=== PATIENT | male | born 1980 | race Two or more races ===

== ENCOUNTER 2017-12-26 05:52 | Inpatient (IN) | payer OTHER ==
[~2017-12-26] VITALS: Ht 172.7 cm; Wt 90.7 kg
[2017-12-26] VITALS (12 sets, daily range): BP systolic 115–139; BP diastolic 57–88
[~2017-12-26 05:52] MED LIST: NKM
[2017-12-26] MEDS ORDERED: Zemuron 50mg/5ml Inj IV ONE (06:15)
[2017-12-26] MEDS ORDERED: LR 1000ml 1,000 ML IVLG SCH (06:24)
[2017-12-26] MEDS ORDERED: Atropine Sulfate 0.4mg/ml inj IVP PRN (06:30)
[2017-12-26] MEDS ORDERED: Metoclopramide 10mg/2ml Inj IVP PRN (06:30)
[2017-12-26] MEDS ORDERED: LORazepam Inj 2mg/ml 1ml IV PRN (06:30)
[2017-12-26] MEDS ORDERED: fentaNYL 100 mcg/2 mL IV PRN (06:30)
[2017-12-26] MEDS ORDERED: Norco 5mg/325mg tab ORAL PRN (06:30)
[2017-12-26] MEDS ORDERED: Meperidine 50mg/ml Inj(FOR RIGORS ONLY) IVP PRN (06:30)
[2017-12-26] MEDS ORDERED: Labetalol 5mg/ml 20ml vial IV PRN (06:30)
[2017-12-26] MEDS ORDERED: Ketorolac 30mg Inj IV PRN ×2 (06:30)
[2017-12-26] MEDS ORDERED: Midazolam 2mg/2ml Inj IVP PRN (06:30)
[2017-12-26] MEDS ORDERED: Acetaminophen (Non formulary) 100 ML IV ONE (06:30)
[2017-12-26] MEDS ORDERED: HYDROcodone/Acetamin 7.5/325 tab ORAL PRN (06:30)
[2017-12-26] MEDS ORDERED: oxyCODONE HCL/Acetaminophen 5/325mg ORAL PRN (06:30)
[2017-12-26] MEDS ORDERED: DiphenhydrAMINE 50mg/ml Inj IVP PRN (06:30)
--- NOTE | 2017-12-26 06:30 | Anethesia Preoperative Eval ---
Anesthesia Pre-op PMH/ROS General Date of Evaluation: Dec 26, 2017 Time of Evaluation: 07:11 Anesthesiologist: Stanislaw ASA Score: ASA 3 Mallampati Score Class I : Soft palate, uvula, fauces, pillars visible Class II: Soft palate, uvula, fauces visible Class III: Soft palate, base of uvula visible Class IV: Only hard plate visible Mallampati Classification: Class III Surgeon: Shyann Diagnosis: Back Pain Surgical Procedure: L5-S1 Microdiscectomy, Microdecompression Anesthesia History: none Social History: alcohol use Family History: no anesthesia problems Allergies: Coded Allergies: No Known Allergies (Unverified , 12/26/17) Medications: see eMAR Past Medical History Gastrointestinal/Genitourinary: Reports: other - Liver Disease, Panreatitis Other: obesity - BMI 32 Anesthesia Pre-op Phys. Exam Physician Exam Vital Signs Date Time Temp Pulse Resp B/P (MAP) Pulse Ox O2 Delivery O2 Flow Rate FiO2 12/26/17 06:25 Room Air 12/26/17 06:25 97.7 63 18 133/78 (96) 97 97.7 Constitutional: NAD Neurologic: CN 2-12 intact Cardiovascular: RRR Respiratory: CTA Gastrointestinal: S/NT/ND Airway Exam Mallampati Score: Class III MO: limited ROM: limited Teeth: missing, intact Anesthesia Pre-op A/P Risk Assessment & Plan Assessment: ASA 3 Plan: GA, SED, GlideScope Go Status Change Before Surgery: No Pre-Antibiotics Dru Grams Ancef IV Given Within 1 Hr of Incision: Yes Time Given: 07:26 Thad Dover MD Dec 26, 2017 06:30
[2017-12-26] MEDS ORDERED: Thrombin 5000 units TOPIC ONE (06:35)
[2017-12-26] MEDS ORDERED: Gelfoam Size TOPIC ONE (06:36)
[2017-12-26] MEDS ORDERED: Bupivacaine 0.5% Inj 30 ml vial INJ ONE (06:37)
[2017-12-26] MEDS ORDERED: Bacitracin 50000 Units Vial ONE (06:37)
[2017-12-26] MEDS ORDERED: Lidocaine 1% Plain 30 ml INJ ONE ×2 (06:37→06:46)
[2017-12-26] MEDS ORDERED: Lidocaine 1% 10mg/ml/Epi 0.005mg/ml 30ml vial INJ ONE (06:37)
[2017-12-26] MEDS ORDERED: Sodium Chloride 10ml vial INJ ONE (06:46)
[2017-12-26] MEDS ORDERED: Lidocaine 1% MPF 10mg/ml 5ml ONE (06:46)
[2017-12-26] MEDS ORDERED: Ketamine 500mg Inj ONE (06:47)
[2017-12-26] MEDS ORDERED: NS Irrig 1000ml ONE (07:00)
[2017-12-26] MEDS ORDERED: Labetalol 5mg/ml 20ml vial IV ONE (07:00)
[2017-12-26] MEDS ORDERED: Sterile Water Irrig 1000ml IRRIG ONE (07:00)
[2017-12-26] MEDS ORDERED: LR 1000ml ONE (07:00)
[2017-12-26] MEDS ORDERED: ceFAZolin sod 1 GM in NS 55 ML IVPB ONE (07:00)
[2017-12-26] MEDS ORDERED: Propofol 1,000mg/ 100ml btl IV ONE (07:00)
[2017-12-26] MEDS ORDERED: Dexamethasone 20mg/5ml IVP ONE (07:00)
[2017-12-26] MEDS ORDERED: HYDROcodone/Acetamin 10/325 tab ORAL PRN (07:15)
[2017-12-26] MEDS ORDERED: HYDROmorphone 1mg/ml Carpuject SUBQ PRN (07:15)
[2017-12-26] MEDS ORDERED: Chloraseptic Spray 20mL Bottle ORAL PRN (07:15)
--- NOTE | 2017-12-26 07:20 | Pre-Procedure Note/Attestation ---
Pre-Procedure Note/Attestation Complete Prior to Procedure Planned Procedure: not applicable Procedure Narrative: L5-S1 microdiscectomy Indications for Procedure Pre-Operative Diagnosis: Trauma L5-S1 HNP Attestation I attest that I discussed the nature of the procedure; its benefits; risks and complications; and alternatives (and the risks and benefits of such alternatives ), prior to the procedure, with the patient (or the patient's legal truck sales representative). I attest that, if there was a reasonable possibility of needing a blood transfusion, the patient (or the patient's legal truck sales representative) was given the [facility] standardized written summary, pursuant to the Everardo Ryan Blood Safety Act ([place] Health and Safety Code # 1645, as amended). I attest that I re-evaluated the patient just prior to the surgery and that there has been no change in the patient's H&P, except as documented below: CHEMA DAVID Dec 26, 2017 07:20
[2017-12-26] MEDS ORDERED: LORazepam 0.5mg tab ORAL PRN (07:45)
--- NOTE | 2017-12-26 07:46 | 48 Hour Post Anesthesia Eval ---
Post Anesthesia Evaluation Procedure: L5-S1 Microdiscectomy, Microdecompression Date of Evaluation: Dec 26, 2017 Time of Evaluation: 12:07 Blood Pressure Systolic: 114 0: 57 Pulse Rate: 63 Respiratory Rate: 18 Temperature (Fahrenheit): 98.2 O2 Sat by Pulse Oximetry: 99 Airway: patent Nausea: No Vomiting: No Pain Intensity: 3 Hydration Status: adequate Cardiopulmonary Status: Stable Mental Status/LOC: patient returned to baseline Follow-up Care/Observations: 0 Post-Anesthesia Complications: 0 Follow-up care needed: ready to discharge Thad Dover MD Dec 26, 2017 07:46
--- NOTE | 2017-12-26 07:46 | Immediate Post-Op Evaluation ---
Immediate Post-Op Evalulation Immediate Post-Op Evalulation Procedure: L5-S1 Microdiscectomy, Microdecompression Date of Evaluation: Dec 26, 2017 Time of Evaluation: 09:57 IV Fluids: 1000 LR Blood Products: 0 Estimated Blood Loss: 25 Urinary Output: 0 Blood Pressure Systolic: 117 Blood Pressure Diastolic: 71 Pulse Rate: 60 Respiratory Rate: 17 O2 Sat by Pulse Oximetry: 98 Temperature (Fahrenheit): 97.8 Pain Score (1-10): 3 Nausea: No Vomiting: No Complications 0 Patient Status: awake, reacts, patent, extubated, none Hydration Status: adequate Dru Grams Ancef IV Given Within 1 Hr of Incision: Yes Time Given: 07:26 Thad Dover MD Dec 26, 2017 07:46
[2017-12-26] MEDS ORDERED: fentaNYL 100 mcg/2 mL IV ONE (08:23)
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
[2017-12-26] MEDS ORDERED: Docusate 100mg/10ml Liq NG SCH (09:00)
[2017-12-26] MEDS ORDERED: Docusate 100mg/10ml Liq ORAL SCH (09:00)
[2017-12-26] MEDS ORDERED: Glycopyrrolate 0.2mg/ml 1ml Vial ONE (09:08)
[2017-12-26] MEDS ORDERED: Neostigmine 1mg/ml 10ml Inj ONE (09:08)
[2017-12-26] MEDS: D5 1/2NS 1,000 ML IV SCH ×2 (09:19→16:05)
--- NOTE | 2017-12-26 09:19 | Brief Operative Note ---
Immediate Post Operative Note Operative Note Pre-op Diagnosis: Trauma L5-S1 HNP Procedure: L5-S1 microdiscectomy microscope local Post-op Diagnosis: same as pre-op Findings: consistent w/pre-op dx studies Surgeon: Shyann GARCIA Rubber Stamp Die Inspector: Ronald CRAMER Anesthesiologist: Stanislaw GARCIA Anesthesia: general Specimen: yes Complications: none Condition: stable Fluids: anesthesia Estimated Blood Loss: minimal Drains: none Implant(s) used?: No CHEMA DAVID Dec 26, 2017 09:19
[2017-12-26] MEDS ORDERED: Naloxone 0.4mg/ml Inj IVP PRN (09:30)
[2017-12-26] MEDS: Hydromorphone 0.5mg/0.5ml inj IVP PRN ×2 (10:09→10:25)
--- NOTE | 2017-12-26 12:30 | Operative Note - Dictated ---
DATE OF OPERATION: 12/26/2017 PRIMARY SURGEON: Kan Boothe, Ph.D., M.D. 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 PROCEDURE: L5-S1 microdiskectomy, high-power microscopic dissection, intraoperative x-rays interpreted by surgeon. Local anesthetic applied by surgeon. ESTIMATED BLOOD LOSS: Minimal. COMPLICATIONS: None. POSTOPERATIVE CONDITION: Good/stable. SPECIMEN: Disk fragments to pathology. ANESTHESIA: General with intubation. ANESTHESIOLOGIST: Thad Dover M.D. POWDER MONKEY: BELA Tapia. DESCRIPTION OF PROCEDURE: The patient was brought to the operating room and in the supine position, general anesthesia intubation was induced. IV antibiotics and IV Decadron were administered 30 minutes prior to incision time. The patient carefully turned and positioned in the prone position. Lumbodorsal spine was sterilely prepped. A spinal needle was percutaneously placed in the subcutaneous tissue midline by Dr. Boothe, under strict sterile conditions. Cross-table radiograph was obtained under sterile conditions, interpreted by Dr. Boothe, for decision of incision placement. Needle was removed. Back was re-sterilely prepped and draped free in usual sterile fashion. A longitudinal incision of the appropriate interval sharply placed through dermis and epidermis. Electrocautery dissection was carried through the subcutaneous tissue to the level of lumbodorsal fascia. This was incised right and left of midline over the respective interval at L5-S1. Marker placed, cross-table image obtained under sterile condition demonstrating the correct level for the dissection at L5-S1. Level marked. Marker removed. Retractors placed. Under high-power magnification, a bilateral hemilaminotomy inferior L5 was performed with dissection of the ligamentum flavum. Lateral releases. Dissection carried initially left side to the lateral aspect of the exiting nerve root/dural tube. Subligamentous HNP identified. Annulotomy followed microdiskectomy not exceeding posterior, anterior dimension of 10 mm. Disk material sent to pathology. Disk space irrigated. No further fragments identified. Bipolar electrocauterization was utilized for minimal bleeding for epidural vessels. Attention was turned to the right side where dissection was carried lateral to the exiting nerve root and dural tube. Identification of HNP. Annulotomy diskectomy to a maximum posterior, anterior dimension not exceeding 10 mm. Disk space irrigated. No further fragments identified. No gross bleeding at any time from the disk space. No dural tears or leaks noted anytime during the procedure. General probing between the dura and the dorsal aspect of the spine revealed no further impressions. Foraminal probing generally revealed no further nerve root compression. The patient is stable. Wound irrigated with antibiotic-containing saline. Sequential reapproximation with Vicryl suture material, lumbodorsal fascia, subcutaneous tissue. Subcuticular reapproximation followed with local anesthetic 1% lidocaine without epinephrine, bilateral lateral aspects of the incision. Sterile bandage applied, maintained in place with tape. The patient carefully turned from the prone to the supine position on the transport bed where he was awakened and extubated in the operating room and transported to postop recovery in good stable condition. Kan Boothe M.D. DR: ADALBERTO JOB#: [id number] CC:
--- NOTE | 2017-12-26 12:54 | Diagnostic Imaging Report ---
INDICATION: Pain, intraoperative, back pain TECHNIQUE: Intraoperative imaging Fluoroscopy time: 3.3 seconds Total dose: 0.3870 mGym2 Total number of images: One COMPARISON: None FINDINGS: Intraoperative imaging demonstrates surgical retractor and posterior to what is presumably L5, surgical tool posterior to what is presumably the L5-S1 disc IMPRESSION: Intraoperative imaging, as described
[2017-12-26] MEDS ORDERED: ceFAZolin sod 1 GM in D5W 55 ML IV SCH (15:30)
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
== END 2017-12-26 18:25 | disposition home or self-care (01) | DRG 520 ==
LOC: SUR 05:52 → 3E 11:50
PROC: 0SB40ZZ Excision of Lumbosacral Disc, Open Approach (ICD-10-PCS; principal; 2017-12-26 07:00)
DX: M48.07 Spinal stenosis, lumbosacral region (principal); M51.17 Intervertebral disc disorders with radiculopathy, lumbosacral region; V89.2XXS Person injured in unspecified motor-vehicle accident, traffic, sequela; E66.9 Obesity, unspecified
CPT/HCPCS: 72020; 76001; J2405; J2710